=== PATIENT | male | born 1990 | race African-American/Black ===

== ENCOUNTER 2022-05-08 10:45 | Emergency (ER) | payer SELFPAY ==
[~2022-05-08] VITALS: Ht 177.8 cm; Wt 75.0 kg
[2022-05-08 10:55] VITALS: BP 140/90
== END 2022-05-08 12:35 | disposition home or self-care (01) ==
LOC: ER 10:55
DX: F41.9 Anxiety disorder, unspecified (principal); J45.909 Unspecified asthma, uncomplicated; F12.10 Cannabis abuse, uncomplicated; Z88.6 Allergy status to analgesic agent
CPT/HCPCS: 82962; 93005; 99283